=== PATIENT | female | born 1975 ===

== ENCOUNTER → 2017-12-11 | Outpatient (CLI) | payer OTHER ==
[~2017-12-11] MED LIST: ASA-EC81 MG PO
== END | disposition home or self-care (01) ==
LOC: RAD 11:08
DX: S60.222A Contusion of left hand, initial encounter (principal)

== ENCOUNTER → 2018-01-17 11:00 | Outpatient (CLI) | payer OTHER | END | disposition home or self-care (01) | LOC: RAD 11:00 | DX: Z76.89 Persons encountering health services in other specified circumstances (principal) ==

== ENCOUNTER → 2018-01-17 11:03 | Outpatient (CLI) | payer OTHER | END | disposition home or self-care (01) | LOC: LAB 11:03 → EKG 11:03 | DX: I49.8 Other specified cardiac arrhythmias (principal) ==

== ENCOUNTER → 2018-01-17 | Outpatient (CLI) | payer OTHER ==
[~2018-01-17] MED LIST changes: +LOSARTAN-HCTZ1 EACH PO; +NORVASC5 MG PO
== END | disposition home or self-care (01) ==
LOC: LAB 10:56
DX: D64.89 Other specified anemias (principal); E88.89 Other specified metabolic disorders; D68.8 Other specified coagulation defects; N39.0 Urinary tract infection, site not specified

== ENCOUNTER → 2018-01-20 17:01 | Outpatient (CLI) | payer OTHER | END | disposition home or self-care (01) | LOC: RAD 17:01 | DX: S60.222A Contusion of left hand, initial encounter (principal); S50.02XA Contusion of left elbow, initial encounter ==

== ENCOUNTER 2018-01-24 06:15 | Day surgery (SDC) | payer OTHER | END 2018-01-24 11:30 | disposition home or self-care (01) | LOC: CIR.AMB 06:15 | DX: S63.642A Sprain of metacarpophalangeal joint of left thumb, initial encounter (principal); M24.542 Contracture, left hand ==

== ENCOUNTER → 2018-02-11 | Emergency (ER) | payer OTHER ==
[~2018-02-11] VITALS: Ht 157.5 cm; Wt 86.2 kg
== END | disposition home or self-care (01) ==
LOC: ER 11:47
DX: I10 Essential (primary) hypertension (principal)

== ENCOUNTER 2023-02-18 14:49 | Emergency (ER) | payer OTHER ==
[~2023-02-18] VITALS: Ht 157.5 cm; Wt 78.5 kg
== END 2023-02-18 20:23 | disposition home or self-care (01) ==
LOC: ER 14:49
DX: S20.20XA Contusion of thorax, unspecified, initial encounter (principal); W18.39XA Other fall on same level, initial encounter; Y93.E8 Activity, other personal hygiene; Y92.012 Bathroom of single-family (private) house as the place of occurrence of the external cause; Y99.9 Unspecified external cause status; I10 Essential (primary) hypertension